=== PATIENT | female | born 1985 | race Caucasian/White ===

== ENCOUNTER 2016-10-03 16:27 | Emergency (ER) | payer OTHER ==
[~2016-10-03] VITALS: Ht 154.9 cm; Wt 75.0 kg
[~2016-10-03 16:27] MED LIST: CEPH500 PO; TRAM50TA4 PO
[2016-10-03] MEDS ORDERED: IBUPROFEN 800 MG TABLET PO ONE (17:00)
[2016-10-03 18:22] VITALS: BP 122/80
== END 2016-10-03 18:25 | disposition home or self-care (01) ==
LOC: EMS 16:28
DX: S93.401A Sprain of unspecified ligament of right ankle, initial encounter (principal); F17.210 Nicotine dependence, cigarettes, uncomplicated; X58.XXXA Exposure to other specified factors, initial encounter; Y93.01 Activity, walking, marching and hiking; Y92.481 Parking lot as the place of occurrence of the external cause; Y99.8 Other external cause status
CPT/HCPCS: 29515; 99284